=== PATIENT | female | born 1965 | race Caucasian/White ===

== ENCOUNTER 2017-02-15 04:53 | Inpatient (IN) ==
[2017-02-08 13:11] LABS: Appearance,Urine CLEAR; Bilirubin,Urine NEG (NEG); Color,Urine YELLOW; Glucose,Urine (UA) NEGATIVE (NEG); Leukocyte Esterase,Urine NEG /uL (NEG); Nitrate,Urine NEG (NEG); Protein,Urine NEG (NEG); Specific Gravity,Urine 1.017 (1.000-1.035); Urine Blood NEG mg/dL (<0.03); Urobilinogen,Urine NEG (NEG)
[2017-02-08 13:40] LABS: Basophils # (Auto) 0.1 K/mcL (0.0-0.3); Basophils % (Auto) 0.9 % (0.0-2.0); Eosinophils # (Auto) 0.2 K/mcL (0.0-0.7); Eosinophils % (Auto) 3.1 % (0.0-7.0); Granulocytes % (Auto) 55.1 % (38.0-78.0); Lymphocytes % (Auto) 32.4 % (15.5-49.0); Mean Cell Volume 81.5 fL (80.0-100.0); Mean Corpuscular HGB Conc 33.9 g/dL (31.0-36.0); Mean Corpuscular Hemoglobin 27.6 pg (26.0-34.0); Monocytes # (Auto) 0.5 K/mcL (0.1-0.9); Monocytes % (Auto) 8.5 % (1.0-12.0); Platelet Count 271 K/mcL (140-440); RBC 5.04 M/mcL (4.00-5.20); Red Cell Distribution Width 13.4 % (11.5-14.5)
[2017-02-08 14:00] LABS: Blood Urea Nitrogen 11 mg/dl (6-20)
[2017-02-15] MEDS ORDERED: oxyCODONE 10 MG TAB.ER.12H PO SCH (06:00)
[2017-02-15] MEDS ORDERED: ceFAZolin 1 GM VIAL IV SCH (06:00)
[2017-02-15] MEDS ORDERED: PREGABALIN 75 MG CAPSULE PO SCH (06:00)
[2017-02-15] MEDS ORDERED: CELECOXIB 200 MG CAPSULE PO SCH (06:00)
[2017-02-15] MEDS ORDERED: SCOPOLAMINE 1 PATCH PATCH TOPICAL ONE (06:23)
[2017-02-15] MEDS ORDERED: KETOROLAC 30 MG, ROPIVACAINE HCL/PF 49.5 ML, EPINEPHrine 0.5 MG, 0.9 % SODIUM CHLORIDE ... IJ ONE (07:00)
[2017-02-15] MEDS ORDERED: fentaNYL 100 MCG/2 ML VIAL IV PRN (07:27)
[2017-02-15] MEDS ORDERED: BENZOCAINE/MENTHOL 1 LOZENGE PO PRN ×2 (07:27→09:27)
[2017-02-15] MEDS ORDERED: MEPERIDINE 25 MG/ML SYRINGE IV PRN (07:27)
[2017-02-15] MEDS ORDERED: HYDROmorphone 2 MG/ML SYRINGE IV PRN (07:27)
[2017-02-15] MEDS ORDERED: ePHEDrine 50 MG/ML AMPUL IV PRN (07:27)
[2017-02-15] MEDS ORDERED: ACETAMINOPHEN 1,000 MG/100 ML BOTTLE IV ONE (07:27)
[2017-02-15] MEDS ORDERED: ONDANSETRON 4 MG/2 ML VIAL IV PRN ×2 (07:27→09:27)
[2017-02-15] MEDS ORDERED: METHOCARBAMOL 1,000 MG/10 ML VIAL IV PRN (07:27)
[2017-02-15] MEDS ORDERED: IPRATROPIUM/ALBUTEROL 3 ML AMPUL.NEB NEB PRN (07:27)
[2017-02-15] MEDS ORDERED: METOPROLOL TARTRATE 5 MG/5 ML VIAL IV PRN (07:27)
[2017-02-15] MEDS ORDERED: LACTATED RINGERS 1,000 ML IV SCH (07:30)
[2017-02-15] MEDS ORDERED: MIDAZOLAM 2 MG/2 ML VIAL ONE (08:27)
[2017-02-15] MEDS ORDERED: GLYCOPYRROLATE 0.2 MG/ML VIAL IV ONE (08:27)
[2017-02-15] MEDS ORDERED: PROPOFOL 200 MG/20 ML VIAL IV ONE (08:27)
[2017-02-15] MEDS ORDERED: NALBUPHINE 10 MG/ML AMPUL IV ONE (08:27)
[2017-02-15] MEDS ORDERED: fentaNYL 250 MCG/5 ML VIAL IV ONE (08:27)
[2017-02-15] MEDS ORDERED: LIDOCAINE HCL/PF 100 MG/5 ML SYRINGE IV ONE (08:27)
[2017-02-15] MEDS ORDERED: KETAMINE 10 MG/ML ML ONE (08:27)
[2017-02-15] MEDS ORDERED: ONDANSETRON 4 MG/2 ML VIAL ONE (08:27)
[2017-02-15] MEDS ORDERED: FLEETS ADULT ENEMA PR PRN (09:27)
[2017-02-15] MEDS ORDERED: POLYETHYLENE GLYCOL 3350 17 GM PACKET PO PRN (09:27)
[2017-02-15] MEDS ORDERED: MAGNESIUM HYDROXIDE 30 ML ORAL.SUSP PO PRN (09:27)
[2017-02-15] MEDS ORDERED: TRANEXAMIC ACID 1,000 MG/10 ML VIAL IV ONE (09:27)
[2017-02-15] MEDS ORDERED: BISACODYL 10 MG SUPP.RECT PR PRN (09:27)
--- NOTE | 2017-02-15 09:27 | Brief Operative Note ---
Date of procedure: 02/15/17 Pre-op diagnosis: Right knee instability s/p total knee Post-op diagnosis: same Procedure: Revision of right total knee arthroplasty, 1 component, tibial insert exchange Grafts/Implants: Yes (13mm size 4 tibial insert ) Anesthesia: GLMA Findings: no evidence of infection or loosening Complications: none Surgeon: Marco Antonio Hernandez Shoe Sprayer: Yousuf Michaels Estimated blood loss (cc): 5 Specimens Removed/Pathology: none sent Condition: stable Disposition: PACU
--- NOTE | 2017-02-15 10:05 | Operative Note ---
DATE OF OPERATION: 02/15/2017 PREOPERATIVE DIAGNOSIS: Right knee instability, status post total knee arthroplasty. POSTOPERATIVE DIAGNOSIS: Right knee instability, status post total knee arthroplasty. PROCEDURE PERFORMED: Revision of right total knee arthroplasty, 1 component with replacement of the tibial insert placing a 13 mm size 4 tibial insert. SURGEON: Marco Antonio Hernandez MD. SUPERVISOR FORCE ADJUSTMENT: Leander Michaels PA-C. ANESTHESIA: General. DRAINS: None. SPECIMENS: Culture and sensitivity x2. BLOOD LOSS: Minimal. POSTOPERATIVE CONDITION: Stable. INDICATIONS FOR SURGERY: This is a 51-year-old female who nearly a year ago underwent a right total knee arthroplasty. She had a prior left total knee arthroplasty with which she was very pleased; however, the right one she had symptoms with examination and radiographically showed a well-appearing implant. She had, on exam, laxity, particularly mid flexion and laxity with anterior drawer, which we felt might be explaining her symptoms. FINDINGS AT SURGERY: She did have laxity and status post revision of the polyethylene showed improvement of that stability. There was no evidence of infection or loosening. PROCEDURE IN DETAIL: The patient had been seen preoperatively and informed consent had been obtained after discussion of risks and benefits of surgery. Risks including, but not limited to, bleeding, possibly requiring transfusion; infection, possibly requiring implant removal and prolonged IV antibiotics; injury to nerves, blood vessels, and other surrounding structures; anesthetic risks; incomplete or no resolution of symptoms; stiffness; pain; instability; DVT and pulmonary embolus risks; and the possibility of needing further surgery. She understood these risks and wished to proceed. Correct operative site was marked and then patient was taken to the operating room and general anesthesia was induced. The right lower extremity was carefully prepped and draped in normal sterile fashion and a time-out was performed verifying patient name, operative site, and plan. Esmarch was used to exsanguinate the extremity and tourniquet was inflated. A midline incision was made with a scalpel through skin and subcutaneous tissue and IrriSept was irrigated and a medial parapatellar arthrotomy made. There was only a mild effusion and normal appearing joint fluid and we went ahead and cultured this x2. We inspected the femoral and tibial implant without any evidence of problems. We went ahead and subperiosteally exposed the anterior medial tibia and then also removed some scar tissue behind the patellar tendon to allow us to then remove the tibial insert with osteotomes. Once this was removed, we went up to a 13 polyethylene trial. This appeared to improve the stability significantly. She still had full extension, so we opened a 13 insert. We irrigated with IrriSept. After a minute we pulse lavaged copiously with saline. We then carefully impacted the 13 insert verifying it was fully seated. The knee was then placed in approximately 30 degrees of flexion. #1 Vicryl was used in [id number] interrupted around the patella and running #1 Vicryl for patellar tendon and quad tendon. Final error step irrigation was done, after a minute 2-0 Monocryl subcutaneous and michael for skin. Xeroform and sterile dressing were applied. Tourniquet was released and patient was awakened, extubated, and transferred to recovery in stable condition. [email or web address] Job ID: [id number] Doc ID: [id number] Marco Antonio Hernandez MD
[2017-02-15] MEDS ORDERED: fentaNYL 100 MCG/2 ML VIAL IV ONE (10:14)
--- NOTE | 2017-02-15 10:39 | XRay Report ---
CLINICAL INFORMATION: Postop total knee revision COMPARISON: 03/09/2016 FINDINGS: Total knee prostheses is anatomically aligned. No osseous abnormalities. Periarticular gas and soft tissue swelling seen as expected IMPRESSION: Negative Interpreted and Authenticated by: Cortes Liu 02/15/17
[2017-02-15] MEDS: 0.9 % SODIUM CHLORIDE 1,000 ML IV SCH ×2 (10:42→21:49)
[2017-02-15] MEDS: KETOROLAC 30 MG/ML VIAL IV SCH ×3 (11:49→23:56)
[2017-02-15] MEDS: 0.9 % SODIUM CHLORIDE 10 ML SYRINGE IV SCH ×2 (15:51→21:51)
[2017-02-15] MEDS: ceFAZolin 1 GM VIAL IV SCH ×2 (15:51→23:56)
[2017-02-15] MEDS ORDERED: SENNOSIDES 1 TABLET PO SCH (21:00)
[2017-02-15] MEDS: ASPIRIN 325 MG ENTERIC COATED TABLET PO SCH (21:50)
[2017-02-15] MEDS: DOCUSATE SODIUM 100 MG CAPSULE PO SCH (21:50)
[2017-02-15] MEDS: CALCIUM W/VIT D3 500 MG TABLET PO SCH (21:50)
[2017-02-15] MEDS: oxyCODONE/APAP 5/325MG TABLET PO PRN (21:59)
[2017-02-16] MEDS: 0.9 % SODIUM CHLORIDE 1,000 ML IV SCH (05:22)
[2017-02-16] MEDS: KETOROLAC 30 MG/ML VIAL IV SCH (05:56)
[2017-02-16] MEDS: 0.9 % SODIUM CHLORIDE 10 ML SYRINGE IV SCH (05:56)
--- NOTE | 2017-02-16 06:34 | Discharge Summary ---
Ortho Discharge - TKA - Patient Instructions Diet: Regular Diet Activity: activity as tolerated, weight bearing as tolerated Total Knee Protocol: For Total Knee: Start ROM HANG with stationary bike or rocking chair. Work on gaining full extension of knee. Posterior dislocation precautions provided. Hip abductor strengthening and gait training instructions provided. Apply Cryocuff as instructed. Dressing Care: May shower in 2 days, Aquacel Ag - leave on for 5 days - Follow Up Plan Follow Up Appointments: Yousuf Mcihaels PA-C [Physician Licensed Mental Health Professional] - 03/02/17 8:50 am Disposition: Home, Self-Care Prognosis: Good Rehab Potential: Good - Orders For Discharge Additional Discharge Orders: Physical Therapy at Discharge - TKA Location: Determined By Patient
--- NOTE | 2017-02-16 07:19 | Orthopedic Progress Note ---
Subjective Patient information: Note initiated : 02/16/17 at 7:17 am Service Date, if different from initiated Date: [] Patient: Karolina Martinez a 51 y/o F admitted on 02/15/17 for Right Total Knee Revision - Poly Exchange. Chief Complaint: [] Principal diagnosis: s/p revision R total knee Interval history: pain controlled Objective Vital signs: Vital Signs Temp Pulse Resp BP BP Pulse Ox 02/16/17 04:22 98.8 F 77 16 104/57 95 02/16/17 00:00 98.6 F 78 16 111/65 93 02/15/17 20:00 97.9 F 68 16 111/57 97 02/15/17 16:04 98.1 F 20 155/58 97 02/15/17 15:32 95 02/15/17 13:40 122/68 95 02/15/17 12:10 122/63 98 02/15/17 11:59 114/70 100 02/15/17 11:20 121/75 100 02/15/17 11:05 123/78 100 02/15/17 10:50 131/83 99 02/15/17 10:35 126/77 93 02/15/17 10:31 74 18 125/73 100 02/15/17 10:25 98.1 F 70 20 132/69 100 02/15/17 10:14 78 12 139/70 02/15/17 10:09 74 13 137/73 02/15/17 10:04 74 13 136/68 02/15/17 09:59 85 25 H 139/72 02/15/17 09:54 81 15 136/69 02/15/17 09:49 79 12 136/70 02/15/17 09:44 76 12 117/68 02/15/17 09:39 98 F 68 12 118/61 100 Intake and Output 02/15/17 02/16/17 02/16/17 21:59 05:59 13:59 Intake Total 1400 / 1400 500 / 500 Output Total 775 / 775 650 / 650 Balance 625 / 625 -150 / -150 Intake: Oral 1400 / 1400 500 / 500 Output: Void Amount 775 / 775 650 / 650 Other: Meal Dinner Percent of Meal Consumed 100% Feeding Ability Independent # Voids 1 1 Weight 198 lb 8 oz Intake & Output: Intake & Output 09/27/17 09/28/17 09/28/17 21:59 05:59 13:59 Intake Total 1400 / 1400 500 / 500 Output Total 775 / 775 650 / 650 Balance 625 / 625 -150 / -150 Weight 198 lb 8 oz Intake: Oral 1400 / 1400 500 / 500 Output: Void Amount 775 / 775 650 / 650 Other: Meal Dinner Percent of Meal Consumed 100% Feeding Ability Independent # Voids 1 1 Dressing: Yes clean, Yes dry, Yes intact Neurological exam IM: Yes alert, Yes neurovascular intact - Labs CBC & BMP: 02/08/17 11:52 02/08/17 11:51 Labs: Orthopedic Labs 02/08/17 11:51 PT 13.1 INR 1.0 02/08/17 11:52 Hgb 13.9 Hct 41.0 Assessment and Plan (1) Status post revision of total replacement of right knee POD#1-pain controlled, ambulating well -d/c Status: Acute
[2017-02-16] MEDS: CALCIUM W/VIT D3 500 MG TABLET PO SCH (08:45)
[2017-02-16] MEDS: DOCUSATE SODIUM 100 MG CAPSULE PO SCH (08:46)
[2017-02-16] MEDS: oxyCODONE/APAP 5/325MG TABLET PO PRN (08:46)
[2017-02-16] MEDS: ASPIRIN 325 MG ENTERIC COATED TABLET PO SCH (08:46)
[2017-02-16] MEDS ORDERED: MULTIVIT,THER IRON,CA,FA & MIN 1 TABLET PO SCH (09:00)
[2017-02-16] MEDS ORDERED: TUMERIC CURCUMIN PO SCH (09:00)
[2017-02-16] MEDS ORDERED: [UNRECOGNIZED DRUG - REMARK] PO SCH (09:00)
[2017-02-16] MEDS ORDERED: PYRIDOXINE 100 MG TABLET PO SCH (09:00)
== END 2017-02-16 10:00 | disposition home or self-care (01) | DRG 489 ==
LOC: MEDSUR 04:53
PROVIDERS: ADMIT Orthopaedic Surgery; ATTEND Orthopaedic Surgery